=== PATIENT | female | born 1995 | race Caucasian/White ===

== ENCOUNTER 2017-09-24 06:23 | Day surgery (SDC) | payer BC ==
[2017-09-24 07:17] VITALS: BMI 23.6
[2017-09-24] MEDS ORDERED: Lactated Ringer's 1,000 ML IV SCH (07:45)
--- NOTE | 2017-09-24 07:50 | PDOC.LDHP ---
Labor and Delivery H&P HPI: @0735: L&D TRiage: Patient of Dr Guerrero. CC: contractions overnight HPI: 22 yo WF CS X2 (last CS was 2013 at 34 weeks), now with contractions overnight, at 36 weeks 5 days. No LOF, no VB, no recent trauma. No issues. Good FM. No HAs. Review of Systems: Complete ROS completed and as per HPI. Current gestational age (weeks): 36 (5 days) Dating criteria: last menstrual period Grav: 5 (Prior CS X2, then 2 SABs after last CS in 2013) Para: 2 Current complications: none Abnormal US findings: No Current medications: pre- vitamins Previous surgical history: other (CS X 2) Allergies/Adverse Reactions: Allergies Allergy/AdvReac Type Severity Reaction Status Date / Time codeine Allergy Severe Rash Verified 09/24/17 06:51 Sulfa (Sulfonamide Allergy Severe Rash Verified 09/24/17 06:51 Antibiotics) Social history: none - Physical Exam Vital signs reviewed and normal: yes (110/60 98.6 79 18) General: NAD, resting Heart: RRR Lungs: CTAB Abdomen: gravid Extremeties: no edema FHT: category 1 Capac contractions every: low amplitute irritability - Vaginal Exam cm dilated: 0 (posterior (fingertip)) Effacement: 25% Station: -2 - Assessment Threatened PTL at 36 weeks, 5 days...CS X2 - Plan Plan: observation in L&D (Plan reviewed with her. We will give 1 liter LR hydration. We will recheck CX in 2 hours and consider repeat CS if cervical change. Currently low suspicion for PTL. Obs for now. cat 1 strip.)
--- NOTE | 2017-09-24 13:04 | PDOC.EVN ---
Event Note - Event Note Event Note: Patient remained unchanged over 5 hours. Contractions mild and spaced out with IV fluids. Discharged home with precautions. status reassuring with reactive NST.
== END 2017-09-24 11:40 | disposition home or self-care (01) ==
LOC: L&D/OP 06:23
PROVIDERS: ATTEND Obstetrics & Gynecology
DX: O47.03 False labor before 37 completed weeks of gestation, third trimester (principal); Z88.2 Allergy status to sulfonamides; Z88.5 Allergy status to narcotic agent; Z79.899 Other long term (current) drug therapy; Z3A.36 36 weeks gestation of pregnancy; Z98.891 History of uterine scar from previous surgery
CPT/HCPCS: 96360; 96361; 99283

== ENCOUNTER 2017-10-12 09:20 | Inpatient (IN) | payer BC ==
[2017-10-12 09:52] VITALS: BMI 22.8
[2017-10-12] MEDS ORDERED: Ondansetron HCl/PF 4 MG/2 ML Vial IVP PRN ×3 (09:57→20:26)
[2017-10-12] MEDS ORDERED: Morphine 4 MG/ML VIAL ONE (09:57)
[2017-10-12] MEDS ORDERED: HYDROcodone/Acetaminophen 5/325 mg Tablet PO PRN ×3 (09:57→20:26)
[2017-10-12] MEDS ORDERED: Lidocaine 1% (PF) 30 ML VIAL SC PRN (09:57)
[2017-10-12] MEDS ORDERED: Ibuprofen 800 MG TAB PO PRN (09:57)
[2017-10-12] MEDS ORDERED: Lactated Ringer's 1,000 ML IV SCH (10:00)
[2017-10-12 10:08] LABS: Hemoglobin 10.1 g/dL (12.0-16.0); Mean Corpuscular HGB CONC 32.8 g/dL (32.0-36.0); Mean Corpuscular Hemoglobin 28.6 pg (27.0-31.0); Mean Corpuscular Volume 87.2 fl (81.0-99.0); Mean Platelet Volume 9.5 fL (7.4-10.4); Platelet Count 193 thou/uL (130-400); RBC Distribution Width 13.4 % (11.5-14.5); Red Blood Cell (RBC) Count 3.55 mill/uL (4.20-5.40); White Blood Cell (WBC) Count 12.9 thou/uL (4.8-10.8)
[2017-10-12] MEDS ORDERED: Morphine 4 MG/ML Carpuject SLOW IVP SCH (10:15)
[2017-10-12] MEDS ORDERED: DISCONTINUE ALL PREVIOUS NARCOTICS FS SCH (10:15)
[2017-10-12] MEDS ORDERED: Bupivacaine 0.5% 20 ML, fentaNYL Citrate/PF 400 MCG in Sodium Chloride 0.9% 72 ML EPIDURAL SCH ×2 (10:15→11:00)
[2017-10-12] MEDS ORDERED: diphenhydrAMINE 50 MG/ML VIAL IVP PRN (10:44)
[2017-10-12] MEDS ORDERED: Promethazine HCl 25 MG/ML VIAL IM PRN (10:44)
[2017-10-12] MEDS ORDERED: Acetaminophen 325 MG TAB PO PRN (10:44)
[2017-10-12] MEDS ORDERED: Lactated Ringer's 500 ML IV PRN (10:44)
[2017-10-12] MEDS ORDERED: Naloxone HCl 0.4 mg/ml Vial IVP PRN ×2 (10:44)
[2017-10-12] MEDS ORDERED: Eucerin (Mineral Oil/Petrolatum,White) 30 gm Jar TOP PRN (10:44)
[2017-10-12] MEDS ORDERED: ePHEDrine/0.9% NaCl/PF SYRINGE 50 mg/10 ml SLOW IVP PRN (10:44)
[2017-10-12] MEDS ORDERED: Fentanyl 4mcg/Marcaine 0.1% Cassette 100 ML EPIDURAL SCH (10:45)
[2017-10-12] MEDS ORDERED: Communication Order-Pharmacy FS SCH (10:45)
[2017-10-12] MEDS: Lactated Ringer's 1,000 ML IV SCH ×2 (10:51→20:07)
[2017-10-12 11:16] LABS: Syphilis Antibody Nonreactive (Nonreactive); Syphilis Antibody Index 0.06 S/CO (<1.00 Non-Reactive)
[2017-10-12 11:18] LABS: HBSAg Index 0.18 S/CO (0-0.99); Hep B Surf Ag Non-Reactive S/CO (NonReactive)
[2017-10-12] MEDS: NS / Oxytocin 40 units/1000ml 1,000 ML IV PRN ×2 (17:30→18:49)
[2017-10-12 19:50] LABS: HIV (1/2) Antibody/Antigen Non-Reactive (NonReactive); HIV 1/2 INDEX 0.15 S/CO (<1.00)
[2017-10-12] MEDS ORDERED: Preparation H Ointment 28 GM TUBE PR PRN (20:26)
[2017-10-12] MEDS ORDERED: Bisacodyl 10 MG SUPP PR PRN (20:26)
[2017-10-12] MEDS ORDERED: NS / Oxytocin 40 units/1000ml 1,000 ML IV SCH (20:26)
[2017-10-12] MEDS ORDERED: Lanolin Ointment 7 GM TUBE TOP PRN (20:26)
[2017-10-12] MEDS ORDERED: Milk Of Magnesia 30 ML UDCUP PO PRN (20:26)
[2017-10-12] MEDS ORDERED: Benzocaine/Menthol 20-0.5% 60 ML CAN TOP PRN (20:26)
[2017-10-12] MEDS ORDERED: diphenhydrAMINE 25 MG CAP PO PRN (20:26)
--- NOTE | 2017-10-12 21:00 | OP ---
DATE OF PROCEDURE: 10/12/2017 Ms. Isidra Mclean delivered a male infant on 10/12/2017 at 1722 hours by an uncomplicated term sponta neous vaginal delivery after 2 previous C-sections at 39 weeks and 2 days gestation. Apgars were 8 a nd 9. Weight is unavailable at time of dictation. Placenta delivered spontaneously followed by Alon ahsan infusion. There were no lacerations requiring repair for hemostasis. Dr. Pope is the deliver ing physician. Counts were correct. Estimated blood loss was 200 mL. Mother and baby were stable i n the immediate .
[2017-10-12] MEDS: Docusate Calcium (SURFAK) 240 MG CAP PO SCH (22:08)
[2017-10-12] MEDS: Ibuprofen 800 MG TAB PO SCH (22:08)
[2017-10-13] MEDS: Ibuprofen 800 MG TAB PO SCH ×2 (05:01→14:02)
[2017-10-13 05:44] LABS: Hemoglobin 8.3 g/dL (12.0-16.0); Mean Corpuscular HGB CONC 33.6 g/dL (32.0-36.0); Mean Corpuscular Hemoglobin 29.5 pg (27.0-31.0); Mean Corpuscular Volume 87.7 fl (81.0-99.0); Mean Platelet Volume 8.7 fL (7.4-10.4); Platelet Count 130 thou/uL (130-400); RBC Distribution Width 13.5 % (11.5-14.5); Red Blood Cell (RBC) Count 2.82 mill/uL (4.20-5.40)
--- NOTE | 2017-10-13 07:30 | PDOC.PP ---
Post Progress Note Post Day #: 1 sp PO intake tolerated: yes Flatus: yes Ambulation: yes Vital Signs (12 hours) Temp Pulse Resp BP 10/13/17 04:00 98.1 F 77 16 106/62 10/12/17 23:00 98.9 F 75 16 110/64 10/12/17 21:30 98 16 112/68 10/12/17 20:30 98.3 F 102 H 16 108/62 Weight Weight 125 lb - Physical Examination General: NAD Cardiovascular: no m/r/g, RRR Respiratory: clear to auscultation bilaterally Abdominal: + bowel sounds, lochia, no distention Extremities: negative homans (B) Neurological: no gross focal deficits Psychiatric: A&Ox3, normal affect Result Diagrams: 10/13/17 05:20 Additional Labs: Post Labs Blood Type A NEGATIVE 10/12/17 10:20 Hep Bs Antigen Non-Reactive S/CO (NonReactive) 10/12/17 10:20 (1) , delivered Code(s): O34.219 - MATERNAL CARE FOR UNSP TYPE SCAR FROM PREVIOUS DEL Status: Acute - Assessment/Plan doing well. desires pm dc at 24 hr post
[2017-10-13] MEDS ORDERED: Adacel (T-DAP) 0.5 ML VIAL IM ONE (09:00)
[2017-10-13] MEDS ORDERED: Prenatal Vitamin 1 TAB PO SCH (09:00)
[2017-10-13] MEDS ORDERED: Measles/Mumps/Rubella 10 MCG/0.5 ML VIAL SC ONE (09:00)
[2017-10-13] MEDS: Docusate Calcium (SURFAK) 240 MG CAP PO SCH (09:22)
[2017-10-13] MEDS: Ferrous Sulfate 325 MG TAB PO SCH ×2 (09:22→17:25)
[2017-10-13] MEDS ORDERED: Bupivacaine/Epinephrine 0.25% 30 ML VIAL ONE (10:55)
[2017-10-13 12:41] VITALS: BP 101/74; TEMP 98.2
== END 2017-10-13 18:45 | disposition home or self-care (01) | DRG 775 ==
LOC: L&D/OP 09:20 → L&D 10:00 → 3SW 20:24
PROVIDERS: ADMIT Obstetrics & Gynecology; ATTEND Obstetrics & Gynecology
PROC: 10E0XZZ Delivery of Products of Conception, External Approach (ICD-10-PCS; principal; 2017-10-12)
DX: O34.211 Maternal care for low transverse scar from previous cesarean delivery (principal); Z37.0 Single live birth; Z3A.39 39 weeks gestation of pregnancy; O26.893 Other specified pregnancy related conditions, third trimester; Z67.11 Type A blood, Rh negative
CPT/HCPCS: 36415; 51702; 85027; 85461; 86780; 86850; 86900; 86901; 87340; 87389; 90384; 96372; 99285; J2270; J3010; J3490; J7050

== ENCOUNTER 2020-02-18 06:15 | Inpatient (IN) | payer OTHER ==
[2020-02-18 06:49] VITALS: BMI 23.2
[2020-02-18] MEDS ORDERED: NS / Oxytocin 40 units/1000ml 1,000 ML IV PRN (07:17)
[2020-02-18] MEDS ORDERED: Misoprostol 200 MCG TAB PR PRN (07:17)
[2020-02-18] MEDS ORDERED: Promethazine HCl 25 MG/ML VIAL IM PRN ×3 (07:17→17:01)
[2020-02-18] MEDS ORDERED: Acetaminophen 500 MG TAB PO PRN (07:17)
[2020-02-18] MEDS ORDERED: Lidocaine 1% (PF) 30 ML VIAL SC PRN (07:17)
[2020-02-18] MEDS ORDERED: Carboprost 250 MCG/ML AMP IM PRN (07:17)
[2020-02-18] MEDS ORDERED: Ondansetron PF 4 MG/2 ML Vial IVP PRN ×3 (07:17→17:01)
[2020-02-18] MEDS ORDERED: Ibuprofen 800 MG TAB PO PRN (07:17)
[2020-02-18] MEDS ORDERED: Methylergonovine 0.2 MG/ML VIAL IM PRN (07:17)
[2020-02-18] MEDS ORDERED: hydrALAZINE 20 MG/ML VIAL SLOW IVP PRN ×2 (07:17→17:01)
--- NOTE | 2020-02-18 07:17 | PDOC.LDHP ---
Labor and Delivery H&P Chief complaint: contractions HPI: 24 yo @ 38.0wks gestation presents for evaluation of contractions since last night. No recent intercourse. She sees Dr. Guerrero as her drupal architect. She has had 2 prior c-sections and 1 successful . Her first section was indicated for breech presentation. Her second section was indicated for distress at 33 wks complicated by IUGR and labor. Her was at 39wks and was uncomplicated. She desires a TOLAC at this time with epidural anesthesia. She denies vaginal bleeding, LOF, decreased movement or vaginal discharge. Current gestational age (weeks): 38 Dating criteria: last menstrual period Grav: 6 Para: 3 OB History Details: See HPI. Current complications: none Abnormal US findings: No Past Medical History: Melanoma on thigh age 2, s/p excision. Current medications: pre- vitamins Previous surgical history: low tranverse CS Allergies/Adverse Reactions: Allergies Allergy/AdvReac Type Severity Reaction Status Date / Time codeine Allergy Severe Rash Verified 02/18/20 06:50 Sulfa (Sulfonamide Allergy Severe Rash Verified 02/18/20 06:50 Antibiotics) Social history: none - Physical Exam Vital signs reviewed and normal: yes General: NAD, resting, breathing through contractions Heart: RRR Lungs: CTAB Abdomen: gravid Extremeties: no edema FHT: category 1 [place] contractions every: 3-4 min - Vaginal Exam cm dilated: 3 Effacement: 75% Station: -2 - OB Labs Blood type: A RH: negative Antibody Screen: negative HIV: negative HEPSAg: negative GBS: negative (per patient) Urine drug screen: negative Rubella: immune - Assessment L&D Assessment: term patient in labor - Plan Plan: admit to L&D -: Term in labor - admit to L&D - Expectant management - Consult anesthesia - Will notify PCP Apolinar DALTON PGY2
[2020-02-18] MEDS ORDERED: Lactated Ringer's 1,000 ML IV SCH (07:30)
[2020-02-18] MEDS ORDERED: NS w/ Oxytocin 10 units 500 ML IV SCH (07:30)
--- NOTE | 2020-02-18 07:30 | PDOC.BPN ---
- Brief Progress Note Encounter Date: 02/18/20 Encounter Time: 07:25 OBGYN H&P Admit note: CC: CTX EGA is 38 weeks 0 days HPI: Patient seen at bedside by me just now. HX reviewed with her. She has had 2 previous CSs with last one a as she arrived at 7 cm. I discussed with her that another TOLAC was possible or she could elect for a repeat CS. Risks and benefits reviewed by me. She desires TOLAC. GBS negative PHYSICAL: CX 3/80/0/intact Monitors: FHTs reactive TOCO: CTXs every 3-5 Dr Guerrero aware of patient's status
--- NOTE | 2020-02-18 07:31 | PDOC.BPN ---
- Brief Progress Note Encounter Date: 02/18/20 Encounter Time: 07:30 Possible LOF ordered; SSE pending by me
--- NOTE | 2020-02-18 07:40 | PDOC.BPN ---
- Brief Progress Note Encounter Date: 02/18/20 Encounter Time: 07:30 Cancel amnisure as swab was bloody SSE performed by me and there is no evidence of ROM. Valsalva was negative
[2020-02-18 08:17] LABS: Hemoglobin 10.7 g/dL (12.0-16.0); Mean Corpuscular HGB CONC 33.6 g/dL (32.0-36.0); Mean Corpuscular Hemoglobin 30.1 pg (27.0-31.0); Mean Corpuscular Volume 89.6 fL (78.0-98.0); Mean Platelet Volume 8.5 fL (7.4-10.4); Platelet Count 195 thou/uL (130-400); RBC Distribution Width 12.2 % (11.5-14.5); Red Blood Cell (RBC) Count 3.56 mill/uL (4.20-5.40); White Blood Cell (WBC) Count 9.8 thou/uL (4.8-10.8)
[2020-02-18 08:55] LABS: Syphilis Antibody Nonreactive (Nonreactive); Syphilis Antibody Index 0.05 S/CO (<1.00 Non-Reactive)
[2020-02-18 08:56] LABS: HBSAg Index 0.15 S/CO (0-0.99); Hep B Surf Ag Non-Reactive S/CO (NonReactive)
[2020-02-18] MEDS ORDERED: Fentanyl 4 mcg/Bup 0.1% Cadd 100 ML ONE (08:56)
[2020-02-18] MEDS ORDERED: Butorphanol Tartrate 1 MG/ML VIAL ONE (09:04)
[2020-02-18] MEDS ORDERED: Butorphanol Tartrate 1 MG/ML VIAL SLOW IVP PRN (09:19)
[2020-02-18] MEDS ORDERED: EPHEDRINE 25 MG/5 ML SYRINGE SLOW IVP PRN (09:54)
[2020-02-18] MEDS ORDERED: Acetaminophen 325 MG TAB PO PRN (09:54)
[2020-02-18] MEDS ORDERED: diphenhydrAMINE 50 MG/ML VIAL IVP PRN (09:54)
[2020-02-18] MEDS ORDERED: Naloxone HCl 0.4 mg/ml Vial IVP PRN ×2 (09:54)
[2020-02-18] MEDS ORDERED: Lactated Ringer's 500 ML IV PRN (09:54)
[2020-02-18] MEDS ORDERED: Fentanyl 4 mcg/Bupivacaine 0.1% Cassette 100 ML EPIDURAL SCH (10:00)
[2020-02-18] MEDS ORDERED: Communication Order-Pharmacy FS SCH (10:00)
[2020-02-18] MEDS ORDERED: Bupivacaine/Epinephrine 0.25% 30 ML VIAL ONE (11:51)
[2020-02-18] MEDS ORDERED: NS / Oxytocin 40 units/1000ml 1,000 ML ONE (14:06)
[2020-02-18] MEDS ORDERED: Lidocaine 1% (PF) 30 ML VIAL ONE (14:06)
--- NOTE | 2020-02-18 14:41 | PDOC.OPDEL ---
OB Operative/Delivery Note Delivery Dr/Surgeon: raul Pre-Delivery Diagnosis: active labor (- prior cs prior ) Procedure/Post Delivery Dx: spontaneous vaginal delivery () Weeks gestation: 38 Anesthesia: epidural - Findings A Sex: male Weight: 0 oz (pendig) - 1 min: 9 - 5 min: 0 - Additional Findings/Plan Placenta delivered: spontaneous Repaired Obstetrical Laceration: none Estimated blood loss: pending Post delivery plan: routine recovery
[2020-02-18] MEDS ORDERED: Bisacodyl 10 MG SUPP PR PRN (17:01)
[2020-02-18] MEDS ORDERED: Adacel (T-DAP) 0.5 ML SYRINGE IM ONE (17:01)
[2020-02-18] MEDS ORDERED: NS / Oxytocin 40 units/1000ml 1,000 ML IV SCH (17:01)
[2020-02-18] MEDS ORDERED: Milk Of Magnesia 30 ML UDCUP PO PRN (17:01)
[2020-02-18] MEDS ORDERED: Preparation H Ointment 28 GM TUBE PR PRN (17:01)
[2020-02-18] MEDS ORDERED: Lanolin Ointment 7 GM TUBE TOP PRN (17:01)
[2020-02-18] MEDS ORDERED: diphenhydrAMINE 25 MG CAP PO PRN (17:01)
[2020-02-18] MEDS ORDERED: Benzocaine-Menthol 82.5 ML CAN TOP PRN (17:01)
[2020-02-18] MEDS ORDERED: Zolpidem Tartrate 5 MG TAB PO PRN (17:01)
[2020-02-18 17:07] LABS: HIV (1/2) Antibody/Antigen Non-Reactive (NonReactive); HIV 1/2 INDEX 0.13 S/CO (<1.00)
[2020-02-18] MEDS: Ferrous Sulfate 325 MG TAB PO SCH (19:35)
[2020-02-18] MEDS: Ibuprofen 100 MG/5 ML UDCUP PO SCH (20:35)
[2020-02-18] MEDS: Docusate Calcium (SURFAK) 240 MG CAP PO SCH (20:37)
[2020-02-18] MEDS ORDERED: Ibuprofen 800 MG TAB PO SCH (22:00)
[2020-02-19] MEDS: Ibuprofen 100 MG/5 ML UDCUP PO SCH ×2 (05:09→14:10)
[2020-02-19] MEDS: Ferrous Sulfate 325 MG TAB PO SCH ×2 (07:20→17:26)
[2020-02-19] MEDS ORDERED: Prenatal Vitamin 1 TAB PO SCH (09:00)
--- NOTE | 2020-02-19 09:04 | PDOC.PP ---
Post Progress Note Post Day #: 1 Subjective: Doing well. virtual visit. vitals reviewed. patient without complaints. nurses evaluations reviewed. PO intake tolerated: yes Flatus: yes Ambulation: yes Vital Signs (12 hours) Temp Pulse Resp BP 02/19/20 05:10 97.7 F 97 16 118/70 02/19/20 00:00 98.4 F 91 16 108/58 L Weight Weight 127 lb - Physical Examination General: NAD Abdominal: lochia, no distention Psychiatric: A&Ox3, normal affect Result Diagrams: 02/18/20 08:08 Additional Labs: Post Labs Hep Bs Antigen Non-Reactive S/CO (NonReactive) 02/18/20 08:08 Blood Type A NEGATIVE 02/18/20 08:08 (1) , delivered Code(s): O34.219 - MATERNAL CARE FOR UNSP TYPE SCAR FROM PREVIOUS DEL Status: Acute - Assessment/Plan Patient doing well Covid 19 screen pending, anticipate result this pm. Baby nursing well and will be ready for DC in pm post blood test and circumcision. Will dc home after 1500 with fu at [facility] in 6 wk.
[2020-02-19] MEDS: Docusate Calcium (SURFAK) 240 MG CAP PO SCH (10:04)
[2020-02-19 11:40] VITALS: BP 102/65; TEMP 98.2
[2020-02-19 11:58] LABS: SARS-CoV-2 MS2 Positive; SARS-CoV-2 N Gene Negative; SARS-CoV-2 S Gene Negative; SARS-CoV-2 by NAA Not Detected (NotDetected); SARS-CoV-2 orf1ab Negative
== END 2020-02-19 17:45 | disposition home or self-care (01) | DRG 807 ==
LOC: L&D/OP 06:15 → L&D 09:10 → 3SW 17:49
PROVIDERS: ADMIT Obstetrics & Gynecology; ATTEND Obstetrics & Gynecology
PROC: 10E0XZZ Delivery of Products of Conception, External Approach (ICD-10-PCS; principal; 2020-02-18)
DX: O34.211 Maternal care for low transverse scar from previous cesarean delivery (principal); Z37.0 Single live birth; Z3A.38 38 weeks gestation of pregnancy; Z20.828 Contact with and (suspected) exposure to other viral communicable diseases; Z88.2 Allergy status to sulfonamides; Z88.8 Allergy status to other drugs, medicaments and biological substances
CPT/HCPCS: 36415; 51702; 85027; 86780; 86850; 86870; 86900; 86901; 87340; 87389; 87635; 99285; J0595; J2001; U0003